=== PATIENT | male | born 1970 | race Caucasian/White ===

== ENCOUNTER → 2018-06-15 11:18 | Outpatient (CLI) | payer MEDICAID, SELFPAY ==
[2018-06-15 13:23] LABS: Alkaline Phosphatase 412 U/L (46-116)
[2018-06-15 13:26] LABS: Hemoglobin A1C 7.5 % (4.5-6.2)
[2018-06-15 17:10] LABS: ALT 52 U/L (12-78); AST 37 U/L (15-37); Albumin 3.9 g/dL (3.4-5.0); Bilirubin, Direct 0.12 mg/dL (0.00-0.20); Bilirubin, Total 0.3 mg/dL (0.2-1.0)
[2018-06-19 19:00] LABS: Mitochondrial Ab, M2 <0.1 U
== END ==
PROVIDERS: PCP Family Medicine; Visit Provider Family Medicine
DX: E10.9 Type 1 diabetes mellitus without complications (principal); R74.8 Abnormal levels of other serum enzymes
CPT/HCPCS: 36415; 80076; 83516; 83036; 84075

== ENCOUNTER 2018-06-27 14:04 | Outpatient (RCR) | payer MEDICAID, SELFPAY ==
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
== END 2018-07-06 23:59 | disposition home or self-care (01) ==
LOC: PT 14:04
PROVIDERS: PCP Family Medicine; Referring Provider Family Medicine; Visit Provider Family Medicine
DX: M25.552 Pain in left hip (principal); M25.512 Pain in left shoulder; M16.12 Unilateral primary osteoarthritis, left hip
CPT/HCPCS: 97110; 97161

== ENCOUNTER 2018-09-10 09:31 | Outpatient (CLI) | payer MEDICAID, SELFPAY ==
[2018-09-10 13:17] LABS: Hemoglobin A1C 7.6 % (4.5-6.2)
[2018-09-10 13:26] LABS: ALT 49 U/L (12-78); AST 30 U/L (15-37); Albumin 3.6 g/dL (3.4-5.0); Alkaline Phosphatase 295 U/L (46-116); Bilirubin, Direct 0.07 mg/dL (0.00-0.20); Bilirubin, Total 0.2 mg/dL (0.2-1.0); Total Protein 6.7 g/dL (6.4-8.2)
== END 2018-09-10 09:51 ==
PROVIDERS: PCP Family Medicine; Visit Provider Family Medicine
DX: E10.9 Type 1 diabetes mellitus without complications (principal); I10 Essential (primary) hypertension; E66.9 Obesity, unspecified
CPT/HCPCS: 36415; 80076; 83036

== ENCOUNTER 2018-11-20 10:17 | Outpatient (CLI) | payer MEDICAID, SELFPAY ==
[2018-11-20 12:02] LABS: ALT 44 U/L (12-78); AST 21 U/L (15-37); Albumin 3.8 g/dL (3.4-5.0); Alkaline Phosphatase 334 U/L (46-116); Bilirubin, Direct 0.09 mg/dL (0.00-0.20); Bilirubin, Total 0.3 mg/dL (0.2-1.0); Total Protein 7.1 g/dL (6.4-8.2)
[2018-11-20 12:24] LABS: GGT 38 U/L (15-85)
[2018-11-23 14:51] LABS: Alkaline Phosphatase 292 U/L (40 - 129); Bone % 22.3 % (19.1-67.7); Intestine 166.1 IU/L (0.0-11.0); Intestine % 56.9 % (0.0-20.6); Liver % 15.1 % (27.8-76.3); Liver 2% 5.7 % (0.0-8.0)
== END 2018-11-20 10:37 ==
PROVIDERS: PCP Family Medicine; Visit Provider Family Medicine
DX: R74.8 Abnormal levels of other serum enzymes (principal)
CPT/HCPCS: 36415; 80076; 84075; 84080; 82977

== ENCOUNTER 2019-02-27 07:57 | Outpatient (CLI) | payer MEDICAID, SELFPAY ==
[2019-02-27 08:44] LABS: Hemoglobin A1C 7.3 % (4.5-6.2)
[2019-03-01 12:34] LABS: Alkaline Phosphatase 192 U/L (40 - 129); Bone % 29.8 % (19.1-67.7); Intestine 87.6 IU/L (0.0-11.0); Intestine % 45.6 % (0.0-20.6); Liver % 17.7 % (27.8-76.3); Liver 2% 6.9 % (0.0-8.0)
[2019-03-01 18:50] LABS: Mitochondrial Ab, M2 <0.1 U
== END 2019-02-27 08:17 ==
PROVIDERS: Family Medicine; PCP Family Medicine; Visit Provider Family Medicine
DX: E11.9 Type 2 diabetes mellitus without complications (principal); R74.8 Abnormal levels of other serum enzymes
CPT/HCPCS: 36415; 83516; 84075; 84080; 83036

== ENCOUNTER 2019-06-01 02:44 | Outpatient (CLI) | payer MEDICAID, SELFPAY ==
[2019-06-01 10:17] LABS: CREATININE 0.91 mg/dL (0.70-1.30)
[2019-06-03 08:32] LABS: Microalb ug/mg Crea 10.9 ug/mg Cr
[2019-06-03 09:05] LABS: Hemoglobin A1C 7.4 % (4.5-6.2)
== END 2019-06-01 03:04 ==
PROVIDERS: PCP Family Medicine; Visit Provider Family Medicine
DX: E11.9 Type 2 diabetes mellitus without complications
CPT/HCPCS: 36415; 82043; 82565; 82570; 83036

== ENCOUNTER 2019-06-05 01:12 | Outpatient (CLI) | payer MEDICAID, SELFPAY ==
--- NOTE | 2019-06-05 12:30 | DI.US_ITS ---
SYMPTOMS/DIAGNOSIS: RIGHT LOWER QUADRANT PAIN, R10.31, TENDER RIGHT INGUINAL CANAL, PAIN DURING INTERCOURSE, H/O LEFT INGUINAL HERNIA ULTRASOUND OF THE RIGHT LOWER QUADRANT FOR A POSSIBLE HERNIA: There is no sonographic evidence of a hernia in the right lower quadrant.
== END 2019-06-05 01:32 ==
PROVIDERS: PCP Family Medicine; Visit Provider Family Medicine
DX: R10.31 Right lower quadrant pain (principal)
CPT/HCPCS: 76857

== ENCOUNTER 2025-05-14 11:11 | Outpatient (CLI) | payer MEDICAID, SELFPAY ==
--- NOTE | 2025-05-14 10:30 | DI.RAD_ITS ---
Exam(s) XR SHOULDER RT COMPLETE 2+V EXAM: XR SHOULDER RT COMPLETE 2+V CLINICAL HISTORY: RIGHT SHOULDER PAIN. TECHNIQUE: 2D digital imaging was performed. Two views. COMPARISON: No exams were available for comparison FINDINGS: BONES: No acute fracture is present. No bony destructive lesion is seen. JOINTS: No dislocation present. Minimal spurring at the AC joint. Glenohumeral joint space is maintained. SOFT TISSUE: Normal. IMPRESSION: Minimal degenerative changes of the AC joint. DATA REPOSITORY: RADIATION DOSE DELIVERED:
== END 2025-05-14 11:12 | disposition home or self-care (01) ==
LOC: DIORS 11:11
PROVIDERS: PCP Family Medicine; Visit Provider Student in an Organized Health Care Education/Training Program
DX: M25.511 Pain in right shoulder (principal)
CPT/HCPCS: 73030

== ENCOUNTER 2025-05-30 08:52 | Day surgery (SDC) | payer MEDICAID, SELFPAY ==
[2025-05-30] VITALS (7 sets, daily range): BP systolic 112–122; BP diastolic 72–78; PULSE 69–79; RESP 14–17; TEMP 36.2–36.9; O2SAT 94–98; BMI 29.0
--- NOTE | 2025-05-30 07:07 | PDOC.DSDIS_ITS ---
Date of service: 05/30/25 Discharge Plan Disposition Patient Disposition: Home Condition: Stable Discharge Details Attending Provider: Remigio Conner Primary Care Provider: Paulo London Home Meds and New Rx's Prescriptions: New oxycodone 5 mg tablet 5 - 10 mg PO .q4-6h MDD 30 mg PRN (Reason: severe pain) Qty: 18 0RF Continued fluoxetine [Prozac] 40 mg capsule 40 mg PO DAILY Qty: 90 4RF Centrum Complete 1 EACH tablet 1 ea PO DAILY (DME) pen needle, diabetic [BD Ultra-Fine Sharlene Pen Needle] 1 EACH needle 1 ea Miscellaneous qid and prn Qty: 100 5RF insulin aspart U-100 [Novolog FlexPen U-100 Insulin] 100 unit/mL insulin pen 10 - 15 unit Sub-Q AC Qty: 45 3RF Patient Comments: pt using as sliding scale Rx Instructions: 15-20 UNITS AC BREAKFAST 30-35 UNITS AC LUNCH 36-48 UNITS AC SUPPER Dx: E11.9 bupropion HCl 300 mg tablet extended release 24 hr 300 mg PO DAILY Qty: 90 3RF (DME) lancets [OneTouch UltraSoft Lancets] Misc 1 ea Miscellaneous QID AND PRN Qty: 270 3RF Rx Instructions: Type II DM test 3 x/day Jardiance 25 mg tablet 25 mg PO DAILY atorvastatin [Lipitor] 80 mg tablet 80 mg PO QHS metoprolol succinate 100 mg tablet extended release 24 hr 100 mg PO DAILY pantoprazole 40 mg tablet,delayed release (DR/EC) 40 mg PO DAILY hydroxyzine HCl 25 mg tablet 25 mg PO QID PRN aspirin 81 mg tablet 81 mg PO DAILY lisinopril 40 mg tablet 40 mg PO DAILY prasugrel HCl 10 mg tablet 10 mg PO DAILY Ozempic 2 mg/dose (8 mg/3 mL) pen injector 2 mg subcut QWEEK sildenafil [Viagra] 100 mg tablet 100 mg PO DAILY PRN Rx Instructions: administer 30 minutes to 4 hours before activity insulin glargine [Lantus Solostar U-100 Insulin] 100 unit/mL (3 mL) insulin pen 57 unit Sub-Q QPM Discharge Instructions Additional Instructions: Surgery: Right shoulder arthroscopy with extensive debridement, subacromial decompression, and open biceps tenodesis 05/30/25 Activity: You should gradually increase range of motion motion and use of your shoulder. You may use your shoulder for all regular activities while protecting biceps repair. Avoid any weighted elbow flexion or resisted supination for 6-8 weeks. No heavy lifting, reaching overhead, or lifting away from body for approximately 2-3 months. You may use the sling whenever you are out of the house for a few weeks. At home it is best to remove the sling and rest the arm on a pillow at your side or support the operative side with your other hand. A physical therapy prescription will be sent electronically to start in about 3 weeks. Prescriptions: Resume home Aspirin and Prasugrel tomorrow Oxycodone 5 mg take 1-2 every 4-6 hours as needed for severe pain You may use [id number] Tylenol (acetaminophen) as needed for mild-moderate pain. These pain medications may be taken together or separately as needed. Also, recommend Colace (docusate) as a stool softener as surgery and pain medicine cause constipation. Dressings: Remove shoulder bandage after 3 days. Leave the sticky Steri-Strips in place until they fall off or remove them after you shower. Cover the incisions with Band-Aids or leave them open to air. The biceps bandage (inside upper arm) is glued on separately. You may leave this one on a few days longer if it is difficult to remove. There is also glue underneath this bandage that can be left in place until it peels off. You may shower after 5 days. Follow-up: 10-[address] Conner You may take off the leg compression stockings this evening at home. You may also leave them on a few days longer if you have a history of leg swelling or edema. Let us know right away if you develop any redness, drainage, fevers, chest pain, or trouble breathing. Do not drink alcohol or drive for at least 24 hours after anesthesia. Please call the office during business hours with any questions or concerns. Stand Alone Forms: Anesthesia Discharge Inst., Celso Coffey ([facility]) Referrals: Remigio Conner MD [ [facility] STAFF PHYSICIAN, Orthopaedic Surgical] - 06/11/25 10:45 am Discharge Orders Discharge Orders: Discharge Order (Routine); Ordered 05/30/25 Ordered By: Diana Bellavance DS: Diagnosis Discharge Diagnosis (1) Right rotator cuff tear: Status: Acute (2) Tendinopathy of right biceps tendon: Status: Acute
--- NOTE | 2025-05-30 07:34 | ROE_ITS ---
Operative Note Operative Note PRE-OP DIAGNOSIS: Right: 1. Rotator cuff tear 2. LHB partial tearing/tendinopathy 3. Impingement POST-OP DIAGNOSIS: same PROCEDURE: Right: 1. Open biceps tenodesis, CPT# 62119. This involved reattaching the long head of the biceps tendon to the proximal humerus in the sub-pectoral area of the bicipital groove at the correct tension. 2. Extensive debridement, CPT# 16017. This involved using arthroscopic hand instruments, power instruments, and radiofrequency instruments to release the long head of the biceps tendon and debride areas of labral tearing, synovitis, and partial articular rotator cuff tearing working within the glenohumeral joint anteriorly, superiorly and posteriorly. 3. Subacromial decompression with partial acromioplasty, CPT# 73191. This involved using arthroscopic power instruments and a radiofrequency wand to complete a bursectomy and smooth the undersurface of the acromion. The assistant county attorney was medically required in order to help assist in techniques above, which require positioning the arm, holding the arthroscope, and manipulating multiple instruments and sutures at the same time. This cannot be done without the help of an experienced assistant county attorney. SURGEON: Remigio Conner RETAIL ASSOCIATE MANAGER BILINGUAL: Diana Bermudez ANESTHESIA TYPE: Local By Surgeon, General LMA/ETT and Primary Nerve Block Refer to Anesthesia Record ESTIMATED BLOOD LOSS: 5 PATHOLOGY: none sent COMPLICATIONS: None Patient was transported to: PACU Patient's condition: stable Implants: Arthrex: Unicortical Proximal Biceps Tenodesis Button Indications: The patient was diagnosed with the above conditions and appropriately indicated for surgical intervention. Please see complete medical record for details. Findings: Exam under anesthesia: Full range of motion, no instability Glenohumeral joint: Significant partial biceps anchor tearing with injection inflammation heading down the bicipital groove. Intact subscapularis. Only mild glenohumeral chondromalacia. Mild to moderate articular sided supraspinatus tearing with stable tendon margins and more central focal area of more moderate tearing. Intact infraspinatus. Subacromial space: Only mild bursitis. Minimal undersurface acromial bone spurring. Mild diffuse bursal fraying, but structurally intact bursal rotator cuff. Procedure Description: In the operating room, general anesthesia was induced. Bilateral shoulders were examined. The patient was positioned in the beachchair position. All bony prominences were well-padded. Preoperative antibiotics were administered. The shoulder was prepped and draped in the usual sterile fashion. The correct pat ient, procedure, and side of the procedure were all verified prior to incision. Starting through the posterior portal a standard complete diagnostic arthroscopy was performed of the glenohumeral joint including inspection of the long head of the biceps, anterior and superior labrum, subscapularis tendon, supraspinatus and infraspinatus tendons, and axillary recess. The glenoid and humeral head c artilage as well as the posterior labrum were inspected from an anterior viewing portal. Significant findings and interventions noted above. The biceps tendon was released from the superior labrum using arthroscopic scissors. Starting through the posterior portal, the arthroscope was directed into the subacromial space. A lateral 50 yard line lateral portal was created. A combination of power instruments and a radiofrequency ablator were used to debride bursitis anteriorly, posteriorly, and laterally as well as expose and smooth bone spurring on the undersurface of the acromion. The coracoacromial ligament was partially released. The bursectomy was completed viewing laterally and working from posteriorly and the rotator cuff was thoroughly inspected with findings noted above. The rotator cuff was thoroughly examined and probed through motion especially considering the partial articular tearing, but the bursal side was structurally sound and given the only small area of more mod erate grade tearing on the articular side, decision was made to omit any takedown or trans tendinous repair. The shoulder was drained of arthroscopic fluid. Bupivacaine with epinephrine was infiltrated about a medium-sized longitudinal incision at the inferior margin of the pectoralis major localized over the long head of the biceps tendon. Blunt and sharp dissection were used to expose the tendon in the bicipital groove. The tendon was brought out of the wound and kept off the skin on top of a blue towel. The correct location for sub-pectoral fixation was localized, prepped with a rasp, and then drilled with a 3.2 mm drill pin in a unicortical fashion. Using a fiber loop suture the tendon was prepped from the musculotendinous junction a few centimeters proximal. The excess tendon was amputated. The free suture ends were then passed through the unicortical button implant. The drill pin was removed and the implant was placed into the humeral intramedullary canal. The button was flipped and the sutures were tensioned bringing the tendon down to bone. Tension and fixation were then tested and found to be appropriate. The suture tails were brought on either side of the tendon and then tied compressing tendon to bone. The wound was copiously irrigated with normal saline. Subcutaneous tissue was closed using 3-0 Monocryl in a buried interrupted fashion. Skin was closed using 3-0 Monocryl in a buried subcuticular running fashion. Skin glue was applied over the incision. Mastisol was applied about the incision. The incision was covered with Telfa, gauze, and covered with a Tegaderm dressing. All portal sites were copiously irrigated. These incisions were closed using 3- 0 Monocryl in a buried fashion and then covered with Mastisol, Steri-Strips, Xeroform, dry gauze, and ABDs. The dressings were covered and secured with Medipore tape. The operative extremity was placed into a sling for immobilization. The patient awoke from anesthesia without complication and was transferred to the recovery room in a stable condition. Date of Procedure: 05/30/25
--- NOTE | 2025-05-30 09:43 | W.ANESPRE ---
General Info Date of Service Date Performed: 05/30/25 Height: 5 ft 9 in Weight: 89.4 kg Body Mass Index (BMI): 29.0 Surgical Procedure: Operation Date: 05/30/25 10:40 Proposed Procedure Side Surgeon p Shoulder Rotator Cuff Arthroscopic W/Extensive Debridement, Open Biceps Tenodesis, Subacromial Decompression Right Remigio Conner MD Meds Allergies and Home Medications Allergies Allergy/AdvReac Type Severity Reaction Status Date / Time No Known Allergies Allergy Verified 05/30/25 09:34 Home Medication ?Medication ?Instructions ?Recorded multivitamin-ferrous 1 ea PO DAILY 12/25/14 fumarate-folic acid 18 mg-400 mcg tablet (Centrum Complete) pen needle, diabetic 32 gauge x ##100 07/06/18 (BD Ultra-Fine Sharlene Pen Needle) fluoxetine 40 mg capsule (Prozac) 40 mg PO DAILY #90 tab-caps 12/05/18 insulin aspart U-100 100 unit/mL 10 - 15 unit (0.1 - 0.15 mL) 12/05/18 (3 mL) subcutaneous pen (Novolog subcut AC #45 mL FlexPen U-100 Insulin aspart) bupropion HCl 300 mg 24 hr tablet, 300 mg PO DAILY #90 tab-caps 04/12/19 extended release lancets (OneTouch UltraSoft #270 ea 07/23/19 Lancets) empagliflozin 25 mg tablet 25 mg PO DAILY 04/23/20 (Jardiance) aspirin 81 mg tablet 81 mg PO DAILY 05/01/25 atorvastatin 80 mg tablet (Lipitor) 80 mg PO QHS 05/01/25 hydroxyzine HCl 25 mg tablet 25 mg PO QID PRN 05/01/25 lisinopril 40 mg tablet 40 mg PO DAILY 05/01/25 Held on 05/27/25. Instructions: Changed by Provider metoprolol succinate 100 mg 100 mg PO DAILY 05/01/25 tablet,extended release 24 hr pantoprazole 40 mg tablet,delayed 40 mg PO DAILY 05/01/25 release prasugrel HCl 10 mg tablet 10 mg PO DAILY 05/01/25 semaglutide 2 mg/dose (8 mg/3 mL) 2 mg subcut QWEEK 05/01/25 subcutaneous pen injector (Ozempic) sildenafil 100 mg tablet (Viagra) 100 mg PO DAILY PRN 05/01/25 insulin glargine 100 unit/mL (3 57 unit subcut QPM 05/27/25 mL) subcutaneous pen (Lantus Solostar U-100 Insulin) Current Visit Medications: Current Medications Generic Name Dose Route Start Last Admin Trade Name Freq PRN Reason Stop Dose Admin Ringer's Solution 1,000 mls @ 30 mls/hr 05/30/25 06:00 IV 05/30/25 23:59 INFUSION FILIBERTO Cefazolin Sodium/Dextrose 2 gm in 50 mls @ 100 mls/hr 05/30/25 06:00 Ancef Duplex IVPB 05/30/25 23:59 PREOP FILIBERTO Tranexamic Acid/Sodium Chloride 1,000 mg in 100 mls @ 600 mls/hr 05/30/25 06:00 IVPB 05/30/25 23:59 PREOP FILIBERTO IV Miscellaneous Supplies 1 each 05/30/25 06:00 Iv Access IV 05/30/25 23:59 DIRECTED FILIBERTO Oxycodone HCl 0 mg 05/30/25 07:07 Oxycodone 5 Mg Tab PO 06/29/25 07:06 Q3H PRN PRN Pain Sodium Chloride 0 ml 05/30/25 06:00 Normal Saline Flush 10 Ml Syr IV 05/30/25 23:59 PRN PRN Sodium Chloride 0 ml 05/30/25 06:00 Normal Saline 10 Ml Vial IJ 05/30/25 23:59 DIRECTED PRN Sterile Water 0 ml 05/30/25 06:00 Water,Injection,Sterile 10 Ml Vial IJ 05/30/25 23:59 DIRECTED PRN PFSH Active Problems Active Problems: Problem Status Onset Code Diabetes mellitus type 2, uncomplicated Acute E11.9 Tendinopathy of right biceps tendon Acute M67.921 Right rotator cuff tear Acute ~12/2024 M75.101 No-show for appointment Acute Z91.199 Alcohol abuse Acute F10.10 Hyperlipidemia Acute E78.5 TIA (transient ischemic attack) Acute G45.9 Left shoulder pain Chronic Right inguinal pain Acute R10.31 Encounter for screening colonoscopy Acute Z12.11 Elevated alkaline phosphatase level Chronic R74.8 Skin lesion of right arm Acute L98.9 Well adult Chronic Hyperglycemia Acute R73.9 Folliculitis Acute L73.9 Esophageal reflux Acute K21.9 Eczema Acute L30.9 Controlled diabetes mellitus type 1 without complications Acute E10.9 Chronic depression Acute F32.9 Chronic anxiety Acute F41.9 ADHD (attention deficit hyperactivity disorder) Acute F90.9 Medical History Medical History Type 1 diabetes pt reports type 2 Erectile dysfunction Inflammatory dermatosis Mass of anterior abdominal wall Gastroenteritis Depressive disorder Ketoacidosis Left hip pain Diabetes type 1, controlled Deep inguinal pain, right Alkaline phosphatase elevation Surgical History Surgical History History of appendectomy H/O esophageal hernia repair S/P orchiopexy History of carpal tunnel surgery H/O sinus surgery Tobacco Smoking/Tobacco Use Status: Former Tobacco Use Alcohol Alcohol Intake: current Alcohol intake frequency: 3 or more drinks per day Alcohol type: hard liquor Details: 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 Pt had a cardiac stent inserted (2020) Vital Signs and Lab Results Vital Signs Most Recent Vital Signs in EMR: Most Recent Vital Signs Temp Pulse Resp BP Pulse Ox 36.7 C 72 16 122/78 98 05/30/25 09:26 05/30/25 09:26 05/30/25 09:26 05/30/25 09:26 05/30/25 09:26 Point of Care Results Point of Care Results: Finger Stick Blood Glucose 194 05/30/25 09:19 Anesthesia Assessment and Plan Anesthesia History Personal History: No History of Anesthesia Complications Family History: No Family History of Anesthesia Complications Exercise Tolerance Exercise Tolerance: Metabolic Equivalents>4 Pertinent Negatives Pertinent Negatives: No Symptoms of GERD Cardiac & Pulmonary Exam Cardiac Exam: Normal S1/S2 Heart Sounds Pulmonary Exam: Clear Bilateral Breath Sounds Implantable Cardiac Device Does patient have a Pacemaker or an ICD?: No Airway Exam Known Difficult Airway: No Mallampati Class: 1 Mouth Opening: Normal (> 3cm) Thyromental Distance: Greater than 3 cm Facial Hair: Full [place] Neck Range of Motion: Full ROM Neck Circumference: Normal Teeth Condition: Normal Dentition ASA Classification ASA Score: ASA 3 Emergency Case?: No NPO Status NPO Status: NPO Clears >2 hours, Solids >8 hours Anesthesia Plan Resuscitation Status: Full Code Anesthesia Technique: General Anesthesia Airway Planned: Endotracheal Tube Pain Management: Surgeon and patient request nerve block Monitors Used: Standard Monitors
[2025-05-30] MEDS: Lactated Ringers 1,000 ML 30 ML IV (09:44)
[2025-05-30] MEDS: ceFAZolin 2 GM/50 ML BAG IVPB (10:50)
[2025-05-30] MEDS: TRANEXAMIC ACID/SOD. CHL. 1,000 MG/100 ML BAG 600 MG IVPB (10:55)
--- NOTE | 2025-05-30 11:19 | W.ANESNERVE ---
Nerve Block Single Injection Procedure Date and Time Date Performed: 05/30/25 Procedure Start: 10:25 Location Where Procedure Performed Procedure Location: Day Surgery Unit Reason Performed: Postoperative Analgesia Requesting Provider: Remigio Conner Timeout Performed Timeout Performed: Yes Monitoring Used ECG, Blood Pressure, SpO2 and See EMR for corresponding vital signs Sterility Sterility: Hand Hygiene, Surgical Cap, Surgical Mask, Sterile Gloves and Chlorhexidine Sedation Given During Procedure Sedation Given (Indicate Dose Given): Versed IV Dose:: 2mg Patient Mental Status Patient Mental Status: Awake Nerve Block 1st Nerve Block: Laterality: Right Block Type: Supraclavicular Ultrasound Image Saved?: Yes Needle / Catheter Used: 100mm SonoPlex II Local Anesthetic Bolus (Indicate Dose Given): Lidocaine used for local infiltration of skin, Injected in 3-5ml increments after negative blood aspiration, Bupivacaine 0.5% Dose:: 10ml and Exparel Dose:: 10ml Additives (Indicate Dose Given): None Ultrasound: Sterile probe cover and gel used Nerve Stimulator: Supplement to Ultrasound use and No twitch or parasthesia noted < 0.5 mA Paresthesia: None Procedure Tolerated: No Complications and Patient tolerated well Procedure Outcome: Unsuccessful Procedure Comment: Straight forward, no concerns. Performed By: Miguelangel Matt
[2025-05-30] MEDS: EPINEPHrine 10 MG/10 ML ML (11:20)
[2025-05-30] MEDS: Bupivacaine 0.25% Pres-Free W/EPI 30 ML VIAL (11:20)
[2025-05-30] MEDS: fentaNYL 100 MCG/2 ML VIAL IVP (13:01)
[2025-05-30] MEDS: oxyCODONE 5 MG TAB PO (14:04)
--- NOTE | 2025-05-30 14:33 | W.ANESPOSTOP ---
Postoperative Evaluation Date, Time and Location Date Performed: 05/30/25 Time Performed: 14:33 Patient Location: Day Surgery Unit Vital Signs Most Recent Imported Vital Signs: Most Recent Vital Signs Temp Pulse Resp BP Pulse Ox 36.3 C L 79 14 112/72 96 05/30/25 13:52 05/30/25 13:52 05/30/25 13:52 05/30/25 13:52 05/30/25 13:52 Pain Score Most Recent Pain Score: Most Recent Pain Score Pain Level 2 05/30/25 14:33 Assessment Mental Status: Awake (Alert & Oriented to Patient Baseline) Airway and Respiratory Function: Patent airway with normal (patient baseline) respiratory exam Cardiovascular Function: Hemodynamically Stable Hydration Status: Adequately Hydrated Nausea & Vomiting: No Nausea or Vomiting Pain: Pain is tolerable per patient Peripheral Nerve Block: Regional nerve block not resolved at time of post operative discharge
== END 2025-05-30 14:55 | disposition home or self-care (01) ==
LOC: SUR 08:54
PROVIDERS: PCP Family Medicine; Visit Provider Student in an Organized Health Care Education/Training Program
PROC: (CPT 29827; principal; 2025-05-30 10:30)
DX: M75.101 Unspecified rotator cuff tear or rupture of right shoulder, not specified as traumatic (principal); M67.921 Unspecified disorder of synovium and tendon, right upper arm; M75.21 Bicipital tendinitis, right shoulder; E10.9 Type 1 diabetes mellitus without complications; G89.18 Other acute postprocedural pain
CPT/HCPCS: 23430; 29823; 29826; 64415; J0665; J0666; J0690; J1100; J2250; J2371; J2405; J2704; J3010